=== PATIENT | male | born 1945 | race Caucasian/White ===

== ENCOUNTER 2017-10-18 08:00 | Outpatient (CLI) | payer MEDICARE ==
[2017-10-18 19:05] LABS: BASOPHILS # (AUTO) 0.1 10^3/uL (0.0-0.1); BASOPHILS % (AUTO) 1.1 %; EOSINOPHILS # (AUTO) 0.4 10^3/uL (0.0-0.7); EOSINOPHILS % (AUTO) 3.6 %; LYMPHOCYTES # (AUTO) 1.5 10^3/uL (1.5-3.5); MEAN CORPUSCULAR HEMOGLOBIN 27.6 pg (27.0-31.0); MEAN CORPUSCULAR HGB CONC 31.9 g/dL (32.0-36.0); MEAN CORPUSCULAR VOLUME 86.3 fL (80.0-94.0); MEAN PLATELET VOLUME 8.1 fL (7.4-11.4); MONOCYTES # (AUTO) 0.9 10^3/uL (0.0-1.0); MONOCYTES % (AUTO) 7.6 %; NEUTROPHILS # (AUTO) 8.9 10^3/uL (1.5-6.6); NEUTROPHILS % (AUTO) 74.7 %; PLT - PLATELET COUNT 378 10^3/uL (130-450); RED BLOOD COUNT 4.71 10^6/uL (4.70-6.10); RED CELL DISTRIBUTION WIDTH 15.6 % (12.0-15.0); WHITE BLOOD COUNT 11.9 x10^3/uL (4.8-10.8)
[2017-10-18 19:22] LABS: ALBUMIN 3.6 g/dL (3.2-5.5); ALBUMIN/GLOBULIN RATIO 0.9 (1.0-2.2); BILIRUBIN,TOTAL 1.6 mg/dL (0.2-1.0); CREATININE 1.7 mg/dL (0.6-1.2); TOTAL PROTEIN 7.4 g/dL (6.7-8.2)
== END 2017-10-18 08:01 | disposition home or self-care (01) ==
LOC: LAB.N 08:00
PROVIDERS: ATTEND Physician Assistant Medical
DX: I50.9 Heart failure, unspecified (principal); I23.8 Other current complications following acute myocardial infarction; Z79.01 Long term (current) use of anticoagulants
CPT/HCPCS: 36415; 80053; 85025

== ENCOUNTER 2017-11-01 11:19 | Emergency (ER) | payer MEDICARE ==
--- NOTE | 2017-11-01 12:12 | ED Physician Documentation ---
History of Present Illness - Stated complaint Stated Complaint: LOW BP - Chief complaint Chief Complaint: Cardiac - History obtained from History obtained from: Patient - Additonal information Additional information: The patient is a 72-year-old male who has a history of coronary artery disease and congestive heart failure, who was at cardiac rehabilitation today for the first time when he became lightheaded and was found to have a low blood pressure of 66/50. He denies chest pain or shortness of breath. He denies recent fever, nausea, vomiting, or dysuria. His history is significant for myocardial infarction in July 2017. He underwent coronary stent placement at that time, but suffered a second MD one week later, followed by a repeat coronary stent placement. He was living in [place] at that time, and has since moved to [facility] to live with his daughter and son-in-law. One month ago he was hospitalized with congestive heart failure, and found to have a low ejection fraction of 25-30%. Initially discharged on spironolactone and Lasix, spironolactone was discontinued last week, and Lasix dose was cut in half , to 40 mg twice daily. He states that he continues to urinate "all the time." Additional medications include metoprolol and Xarelto. Review of Systems Constitutional: reports: Fatigue. denies: Fever Nose: denies: Congestion Throat: denies: Sore throat Cardiac: denies: Chest pain / pressure Respiratory: denies: Dyspnea, Cough GI: denies: Abdominal Pain, Nausea, Vomiting : denies: Dysuria Skin: denies: Rash Musculoskeletal: denies: Extremity swelling Neurologic: reports: Generalized weakness. denies: Focal weakness, Numbness, Headache PD PAST MEDICAL HISTORY - Past Medical History Past Medical History: Yes Cardiovascular: Congestive heart failure, Coronary artery disease, Deep vein thrombosis, MD GI: Hemorrhoids Musculoskeletal: Fatigue - Past Surgical History Past Surgical History: Yes General: Colonoscopy Ortho: Rotator cuff repair, Carpal Tunnel surgery Cardiovascular: Coronary stent, Cardiac catheterization, Angioplasty - Present Medications Home Medications: Ambulatory Orders Medication Instructions Recorded Confirmed Clopidogrel [Plavix] 75 mg PO DAILY PM 11/01/17 11/01/17 Furosemide [Lasix] 40 mg PO BID 11/01/17 11/01/17 Metoprolol Succinate 12.5 mg PO DAILY 11/01/17 11/01/17 Spironolactone 25 mg PO DAILY PM 11/01/17 11/01/17 Valsartan [Diovan] 40 mg PO DAILY PM 11/01/17 11/01/17 - Allergies Allergies/Adverse Reactions: Allergies Allergy/AdvReac Type Severity Reaction Status Date / Time codeine Allergy Intermediate Nausea Verified 11/01/17 11:27 - Living Situation Living Situation: reports: With family Living Arrangement: reports: At home - Social History Does the pt smoke?: No Smoking Status: Never smoker Does the pt drink ETOH?: No Does the pt have substance abuse?: No PD ED PE NORMAL - Vitals Vital signs reviewed: Yes (initially hypotensive at 84/50.) - General General: Alert and oriented X 3, Well developed/nourished - HEENT HEENT: Atraumatic, Moist mucous membranes, Pharynx benign - Neck Neck: No adenopathy, No JVD - Cardiac Cardiac: RRR, No murmur - Respiratory Respiratory: No respiratory distress, Clear bilaterally - Abdomen Abdomen: Soft, Non tender - Back Back: No spinal TTP - Derm Derm: No rash - Extremities Extremities: No calf tenderness / cord, Other (Trace pedal edema bilaterally.) - Neuro Neuro: Alert and oriented X 3, No motor deficit, No sensory deficit, Normal speech Results - Vitals Vitals: Oxygen O2 Source Room air - EKG (time done) 11:25 Rate: Rate (enter#) (74) Rhythm: NSR [place]: Normal Intervals: LBBB Ischemia: T wave inversion (in leads I, aVL, II, III, aVF, andV4-V6.) Computer interpretation: Agree with computer - Labs Labs: Laboratory Tests 11/01/17 11/01/17 11/01/17 11:50 11:50 11:50 WBC 11.8 H RBC 5.02 Hgb 13.7 L Hct 42.3 MCV 84.3 MCH 27.2 MCHC 32.3 RDW 15.7 H Plt Count 441 MPV 7.3 L Neut # 8.9 H Lymph # 1.8 [place] # 0.8 Eos # 0.3 Baso # 0.1 Absolute Nucleated RBC 0.00 Nucleated RBC % 0.0 Sodium 126 L Potassium 5.6 H Chloride 87 L Carbon Dioxide 20 L Anion Gap 19.0 H BUN 59 H Creatinine 2.2 H Estimated GFR (MDRD) 30 L Glucose 86 Calcium 10.0 Troponin I 0.11 PD MEDICAL DECISION MAKING - ED course Complexity details: reviewed old records, reviewed results, re-evaluated patient , considered differential, d/w patient, d/w family, d/w PMD ED course: The patient's presentation is significant for transient hypotension after taking his morning medications, which included metoprolol and Lasix. He arrived in the emergency departmen with an IV already established and infusing normal saline. He received 500 mL normal saline. His blood pressure subsequently came up to 101/69 without any further intervention. Laboratory results reveal progressive renal insufficiency with BUN 59 and creatinine 2.2. This compares to a BUN of 38 and creatinine 1.7 two weeks ago. In addition his chemistry panel reveals hyponatremia with a sodium of 126, and mild hyperkalemia with potassium of 5.6. 2 weeks ago his sodium was 130 and his potassium was 4.2. His electrocardiogram reveals left bundle branch block. I discussed his presentation and lab results with his primary physician who will see him urgently in follow-up in clinic within the next 3 days. At the time of discharge the patient felt subjectively back to his baseline, and demonstrated ability to ambulate without lightheadedness. I discussed with him the results of his workup, advised decreasing his Lasix to 20 mg twice daily, advised urgent follow-up with his primary physician, as well as discussed potentially worrisome signs or symptoms that should prompt reevaluation in the emergency department. Departure - Departure Disposition: 01 Home, Self Care Clinical Impression: Hyponatremia, Renal insufficiency Low blood pressure Qualifiers: Hypotension type: unspecified hypotension type Qualified Code(s): I95.9 - Hypotension, unspecified Condition: Stable Instructions: ED Hypotension All Causes Follow-Up: Celso Calixto MD [Credentialed Staff Provider] - Comments: Discontinue spironolactone as previously instructed, and decrease Lasix to 20 mg twice daily. Call your primary physician's office today to schedule a follow-up appointment for early next week. He will want to recheck your chemistry panel because of low sodium, high potassium, and elevated BUN and creatinine. Return to the emergency department if you develop lightheadedness, chest pain, increasing shortness of breath, or otherwise worsening symptoms. Discharge Date/Time: 11/01/17 14:00
[2017-11-01 12:27] LABS: BASOPHILS # (AUTO) 0.1 10^3/uL (0.0-0.1); BASOPHILS % (AUTO) 0.6 %; EOSINOPHILS # (AUTO) 0.3 10^3/uL (0.0-0.7); EOSINOPHILS % (AUTO) 2.2 %; HGB - HEMOGLOBIN 13.7 g/dL (14.0-18.0); LYMPHOCYTES # (AUTO) 1.8 10^3/uL (1.5-3.5); LYMPHOCYTES % (AUTO) 15.2 %; MEAN CORPUSCULAR HEMOGLOBIN 27.2 pg (27.0-31.0); MEAN CORPUSCULAR HGB CONC 32.3 g/dL (32.0-36.0); MEAN CORPUSCULAR VOLUME 84.3 fL (80.0-94.0); MEAN PLATELET VOLUME 7.3 fL (7.4-11.4); MONOCYTES # (AUTO) 0.8 10^3/uL (0.0-1.0); MONOCYTES % (AUTO) 6.7 %; NEUTROPHILS # (AUTO) 8.9 10^3/uL (1.5-6.6); NEUTROPHILS % (AUTO) 75.3 %; PLT - PLATELET COUNT 441 10^3/uL (130-450); RED BLOOD COUNT 5.02 10^6/uL (4.70-6.10); RED CELL DISTRIBUTION WIDTH 15.7 % (12.0-15.0); WHITE BLOOD COUNT 11.8 x10^3/uL (4.8-10.8)
[2017-11-01 12:31] LABS: CREATININE 2.2 mg/dL (0.6-1.2)
[2017-11-01 14:18] VITALS: BP 101/69
== END 2017-11-01 14:00 | disposition home or self-care (01) ==
LOC: ED 11:19
DX: E87.1 Hypo-osmolality and hyponatremia (principal); N28.9 Disorder of kidney and ureter, unspecified; I44.7 Left bundle-branch block, unspecified; I25.2 Old myocardial infarction; Z95.5 Presence of coronary angioplasty implant and graft; Z86.718 Personal history of other venous thrombosis and embolism; Z79.02 Long term (current) use of antithrombotics/antiplatelets
CPT/HCPCS: 36415; 80048; 84484; 85025; 93005; 99283; 99284

== ENCOUNTER 2017-11-07 14:02 | Outpatient (CLI) | payer MEDICARE ==
[2017-11-07 19:12] LABS: CALCIUM 9.1 mg/dL (8.5-10.3); CREATININE 2.1 mg/dL (0.6-1.2)
== END 2017-11-07 14:03 | disposition home or self-care (01) ==
LOC: LAB.N 14:02
PROVIDERS: ATTEND Internal Medicine Cardiovascular Disease
DX: I50.22 Chronic systolic (congestive) heart failure (principal)
CPT/HCPCS: 36415; 80048